=== PATIENT | female | born 1975 | race Caucasian/White ===

== ENCOUNTER → 2018-02-05 | Outpatient (CLI) | payer MEDICARE, MEDICAID | END | disposition home or self-care (01) | LOC: LAB.O 15:23 | PROVIDERS: ATTEND Obstetrics & Gynecology | DX: R30.0 Dysuria (principal); I10 Essential (primary) hypertension ==

== ENCOUNTER 2018-09-26 19:43 | Emergency (ER) | payer MEDICARE, MEDICAID ==
[2018-09-26 19:58] VITALS: BP 144/89; TEMP 99
[2018-09-26] MEDS: CLINDAMYCIN HCL CAP 150 MG CAP PO ONE (20:02)
[2018-09-26] MEDS: traMADol HCL 50 MG TAB PO ONE (20:02)
--- NOTE | 2018-09-26 20:02 | ED.PDOC ---
History of Present Illness - General Chief Complaint: Dental/Mouth Stated Complaint: tooth pain Time Seen by Provider: 09/26/18 19:48 Source: patient Exam Limitations: no limitations - History of Present Illness Initial Comments: the patient is a 42-year-old female presenting to the emergency room secondary to pain from the second molar of the left maxilla due to an infected dental caries or fractured tooth. It has been bothering her for a couple of weeks. It is getting worse. She is having pain extending of her face. Ears mild facial swelling but no obvious abscess. No obvious extension into the maxillary sinus. The patient is pleasant and cooperative. She has been taking Motrin. She has been applying topical lidocaine. Timing/Duration: unsure, 1 week Severity: severe Improving Factors: nothing Worsening Factors: eating Associated Symptoms: denies symptoms Allergies/Adverse Reactions: Allergies NO KNOWN ALLERGY Allergy (Verified 09/26/18 19:51) Home Medications: Ambulatory Orders Buprenorphine HCl-Naloxone HCl [Suboxone] 1 mis SL QID 09/26/18 Clindamycin HCl 300 mg PO Q8H #30 cap 09/26/18 Eletriptan Hydrobromide [Relpax] 20 mg PO PRN PRN 09/26/18 Lamotrigine [Lamictal] 200 mg PO DAILY 09/26/18 Tramadol HCl 50 mg PO Q8HR PRN #20 tab 09/26/18 Trazodone HCl 150 mg PO BEDTIME 09/26/18 Review of Systems - Review of Systems Constitutional: States: no symptoms reported EENTM: States: see HPI Respiratory: States: no symptoms reported Cardiology: States: no symptoms reported Gastrointestinal/Abdominal: States: no symptoms reported Genitourinary: States: no symptoms reported Musculoskeletal: States: no symptoms reported Skin: States: no symptoms reported Neurological: States: no symptoms reported Endocrine: States: no symptoms reported All other Systems: No Change from Baseline Past Medical History (General) - Patient Medical History Hx Asthma: No Hx of COPD: No Surgical History: other - Social History Hx Tobacco Use: Yes Hx Alcohol Use: No Family Medical History - Family History Father Family History: Unknown Physical Exam - Physical Exam General Appearance: Alert, Comfortable, No apparent distress Eye Exam: bilateral normal Ears, Nose, Throat: hearing grossly normal, other - poor dentition with several obvious dental caries. No obvious large abscess formed. 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 No obvious abscess formation at this time. She was dosed with tramadol and clindamycin. She'll be written for these as an outpatient. She does obviously need to follow-up with a dentist for definitive care. If she can obtain some, clove oil can be applied topically once only to the site. [id number] anti-inflammatories can be used with food as well. Keep routine follow up with primary care doctor otherwise. ER warnings were given. Departure - Departure Clinical Impression: Chronic dental infection Disposition: Discharge to Home or Self Care Condition: Fair Departure Forms: ED Discharge - Pt. Copy, Patient Portal Self Enrollment Instructions: DI for Dental Pain Diet: regular diet Activity: increase activity as tolerated Referrals: Destiny Mcdonough NP [Primary Care Provider] - 1-2 Weeks Prescriptions: Tramadol HCl 50 mg PO Q8HR PRN #20 tab PRN Reason: Moderate To Severe Pain Clindamycin HCl 300 mg PO Q8H #30 cap Home Medications: Ambulatory Orders Buprenorphine HCl-Naloxone HCl [Suboxone] 1 mis SL QID 09/26/18 Clindamycin HCl 300 mg PO Q8H #30 cap 09/26/18 Eletriptan Hydrobromide [Relpax] 20 mg PO PRN PRN 09/26/18 Lamotrigine [Lamictal] 200 mg PO DAILY 09/26/18 Tramadol HCl 50 mg PO Q8HR PRN #20 tab 09/26/18 Trazodone HCl 150 mg PO BEDTIME 09/26/18 Additional Instructions: the patient is a 42-year-old female presenting to emergency room secondary to what appears to be an infected dental caries. No obvious abscess formation at this time. She was dosed with tramadol and clindamycin. She'll be written for these as an outpatient. She does obviously need to follow-up with a dentist for definitive care. If she can obtain some, clove oil can be applied topically once only to the site. [id number] anti-inflammatories can be used with food as well. Keep routine follow up with primary care doctor otherwise. ER warnings were given.
[2018-09-26 20:16] VITALS: O2SAT 99
== END 2018-09-26 20:15 | disposition home or self-care (01) ==
LOC: ER 19:43
DX: K04.7 Periapical abscess without sinus (principal); K02.9 Dental caries, unspecified; Z87.891 Personal history of nicotine dependence